=== PATIENT | female | born 1970 | race Caucasian/White ===

== ENCOUNTER 2018-12-14 23:11 | Emergency (ER) | payer SELFPAY ==
[2018-12-14] MEDS ORDERED: DIAZEPAM 5 MG TABLET ONE (23:28)
[2018-12-14] MEDS ORDERED: HYDROCODONE/APAP 5/325 MG TAB ONE (23:28)
--- NOTE | 2018-12-14 23:28 | ER ---
Nurse's Notes [facility] Name: Yaa Barrera Age: 48 yrs Sex: Female : 1970 Arrival Date: 12/14/2018 Time: 23:13 Bed 6 Private MD: Diagnosis: Anxiety disorder, unspecified;Hyperventilation Presentation: 12/14 23:13 Presenting complaint: EMS states: they were called out for report of pt with anxiety bb attack. Transition of care: patient was not received from another setting of care. Onset of symptoms was December 14, 2018. Risk Assessment: Do you want to hurt yourself or someone else? Patient reports no desire to harm self or others. Initial Sepsis Screen: Does the patient meet any 2 criteria? No. Patient's initial sepsis screen is negative. Does the patient have a suspected source of infection? No. Patient's initial sepsis screen is negative. Care prior to arrival: None. 23:13 Method Of Arrival: EMS: [facility] 23:13 Acuity: [facility] 3 bb Triage Assessment: 23:15 General: Appears in no apparent distress. uncomfortable, Behavior is anxious, crying. rr5 LEAF TIER: 23:15 unknown rr5 Historical: - Allergies: 23:15 No Known Allergies; bb - Home Meds: 23:15 Unable to obtain [Active]; bb - PMHx: 23:15 tracheostomy; bb - PSHx: 23:15 tracheostomy; bb - Immunization history:: Adult Immunizations unknown. - Social history:: Smoking status: Patient/guardian denies using tobacco, Patient uses alcohol, patient/guardian reports recent binge of alcohol consumption. - Ebola Screening: : No symptoms or risks identified at this time. - Family history:: not pertinent. - Hospitalizations: : No recent hospitalization is reported. Screenin:15 Abuse screen: Denies threats or abuse. Denies injuries from another. Nutritional rr5 screening: No deficits noted. Tuberculosis screening: No symptoms or risk factors identified. Fall Risk None identified. Total Hoffmann Fall Scale indicates No Risk (0-24 pts). Assessment: 23:15 General: Appears in no apparent distress. uncomfortable, obese, Behavior is anxious, rr5 crying. 23:15 Pain: Complains of pain in palmar aspect of right wrist Pain radiates to dorsal aspect rr5 of right forearm Pain Quality of pain is described as aching, Pain began gradually, Is intermittent. Neuro: Level of Consciousness is awake, alert, obeys commands, Oriented to person, place, time, situation, Appropriate for age. Cardiovascular: Capillary refill < 3 seconds Patient's skin is warm and dry. Respiratory: Airway is patent Trachea Respiratory effort is even, unlabored, Respiratory pattern is regular, symmetrical, with tracheostomy on room air. GI: No signs and/or symptoms were reported involving the gastrointestinal system. : No signs and/or symptoms were reported regarding the genitourinary system. EENT: Throat with gag reflex present, tracheostomy noted.. Derm: Wound noted right leg and left leg Wound is abrasions. Musculoskeletal: Circulation, motion, and sensation intact. Capillary refill < 3 seconds, Swelling present in palmar aspect of right wrist. 12/15 00:30 Reassessment: Patient appears in no apparent distress at this time. Patient is alert, rr5 oriented x 3, equal unlabored respirations, skin warm/dry/pink. discharge instruction given and explained without complaints made. Vital Signs: 12/14 23:15 BP 102 / 64; Pulse 123; Resp 16 S; Temp 99.6(O); Pulse Ox 95% on R/A; Weight 113.4 kg bb (R); Height 5 ft. 1 in. (154.94 cm) (R); 12/15 00:20 BP 126 / 92; Pulse 99; Resp 17; Pulse Ox 99% ; rr5 12/14 23:15 Body Mass Index 47.24 (113.40 kg, 154.94 cm) bb ED Course: 12/14 23:13 Patient arrived in ED. bb 23:14 Triage completed. bb 23:15 Arm band placed on Patient placed in an exam room, on a stretcher, on pulse oximetry. bb 23:15 Patient has correct armband on for positive identification. Bed in low position. Call rr5 light in reach. Side rails up X2. 23:15 Ice pack to injury. rr5 23:20 Hiren Quispe MD is Attending Physician. rn 23:25 Lee Romo RN is Primary Nurse. rr5 23:45 X-ray completed. Portable x-ray completed in exam room. Patient tolerated procedure kw well. 09/16 00:20 Mukul wrap to right wrist. rr5 00:30 No provider procedures requiring assistance completed. Patient did not have IV access rr5 during this emergency room visit. 05:46 XRAY Wrist RIGHT 2 view In Process Unspecified. EDMS Administered Medications: 12/14 23:31 Drug: Valium 5 mg Route: PO; rr5 12/15 00:20 Follow up: Response: No adverse reaction; RASS: Alert and Calm (0) rr5 12/14 23:31 Drug: [place] 5 mg-325 mg 1 tabs {Note: rass 0.} Route: PO; rr5 12/15 00:20 Follow up: Response: No adverse reaction; RASS: Alert and Calm (0) rr5 Outcome: 12/14 23:28 Discharge ordered by . lisa 12/15 00:25 Discharged to home ambulatory, with family. rr5 Condition: stable Discharge instructions given to patient, family, Instructed on discharge instructions, follow up and referral plans. Demonstrated understanding of instructions, follow-up care. 00:29 Patient left the ED. rr5 Signatures: Dispatcher [employer] EDMS Dawn Cummings, RN RN Hiren Schneider MD MD rn Whitley, Kimberlee kw Roque, Raymond, RN RN rr5
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
[2018-12-15 01:30] VITALS: BP 102/64; TEMP 99.6; O2SAT 95
--- NOTE | 2018-12-15 08:38 | RAD REPORT ---
EXAM DESCRIPTION: RAD - Wrist Right 2 View - 12/14/2018 11:48 pm CLINICAL HISTORY: Right wrist pain status post injury FINDINGS: A limited two view series obtained A radiopaque foreign body is not seen No fracture or dislocation is seen.
--- NOTE | 2018-12-15 11:32 | EKG ---
Test Date: 2018-12-14 Test Time: 23:09:55 E Learning Coordinator: MILA MEASUREMENT RESULTS: Intervals: Rate: 121 MO: 150 QRSD: 78 QT: 324 QTc: 460 [place]: P: 75 MO: 150 QRS: 75 T: 69 INTERPRETIVE STATEMENTS: Sinus tachycardia Low voltage QRS Borderline ECG No previous ECG available for comparison Electronically Signed On 12-15-18 11:30:45 CDT by Donald Whittington
== END 2018-12-15 00:29 | disposition home or self-care (01) ==
LOC: ER 23:11
DX: R06.4 Hyperventilation (principal)
CPT/HCPCS: 93005; 99284